=== PATIENT | female | born 1940 | race Two or more races ===

== ENCOUNTER 2018-02-17 09:21 | Outpatient (CLI) | payer OTHER ==
[~2018-02-17 09:21] MED LIST: SINGULAIR 10MG10 MG PO; TESSALON200 MG PO; TUSSI PRES-B L120 M1 PO
== END 2018-02-17 09:35 | disposition home or self-care (01) ==
LOC: LAB 09:21
DX: I10 Essential (primary) hypertension (principal); E11.9 Type 2 diabetes mellitus without complications; E03.8 Other specified hypothyroidism; E78.2 Mixed hyperlipidemia; R10.9 Unspecified abdominal pain; K92.1 Melena; D64.0 Hereditary sideroblastic anemia

== ENCOUNTER 2018-02-22 08:38 | Outpatient (CLI) | payer OTHER | END 2018-02-22 08:50 | disposition home or self-care (01) | LOC: TOM 08:38 | DX: R10.84 Generalized abdominal pain (principal) | CPT/HCPCS: 74177; Q9965 ==

== ENCOUNTER 2019-04-23 09:47 | Outpatient (CLI) | payer OTHER | END 2019-04-23 09:51 | disposition home or self-care (01) | LOC: NUCLEAR 09:47 | DX: I10 Essential (primary) hypertension (principal); R07.9 Chest pain, unspecified ==

== ENCOUNTER 2020-09-22 08:28 | Outpatient (CLI) | payer OTHER | END 2020-09-22 08:42 | disposition home or self-care (01) | LOC: LAB 08:28 | PROVIDERS: ATTEND Internal Medicine Cardiovascular Disease | DX: M16.11 Unilateral primary osteoarthritis, right hip (principal); E03.8 Other specified hypothyroidism; I10 Essential (primary) hypertension; E11.9 Type 2 diabetes mellitus without complications; E78.2 Mixed hyperlipidemia; Z12.11 Encounter for screening for malignant neoplasm of colon; E55.9 Vitamin D deficiency, unspecified ==